=== PATIENT | male | born 1955 | race Caucasian/White ===

== ENCOUNTER 2017-09-05 15:51 | Emergency (ER) | payer BC ==
[~2017-09-05] VITALS: Ht 185.4 cm; Wt 128.7 kg
[~2017-09-05 15:51] MED LIST: ASPIRIN81 M2 PO; BACTRIM,SEPT1 TABLET PO; BENADRYL25 MG PO; BENADRYL50 MG PO; BENICAR HCT 201 EACH PO; CIPRO500 MG PO; DELTASONE20 M1 PO; EPIPEN ADU0.3 MG/0.3 IM; FLAGYL500 MG PO; GINSENG100 M2 PO; GINSENG100 MG PO; HYDROCHLOROTHIA25 MG PO; LIPITOR20 MG PO; LISINOPRIL-HCT1 EAC3 PO; LO-DOSE ASPIRIN81 M1 PO; MULTIPLE VITAM1 EACH PO; NORVASC10 MG PO; NORVASC5 MG PO; PHENERGAN-CODE120 ML PO; PREDNISONE10 M1 PO; PREDNISONE10 MG PO; PREDNISONE20 MG PO; SANDOSTATIN LAR10 MG IM; SANDOSTATIN LAR30 MG IM; TRULICITY1.5 MG/0.5 SC; VITAMIN D2000 UNIT PO; VITAMIN D31000 UNI2 PO; ZANTAC150 MG PO; ZITHROMAX Z-PA250 MG PO
[2017-09-05 17:16] LABS: HEMATOCRIT 41.4 % (38.0-50.0); MCH 29.4 PG (29.0-34.0); MCHC 34.3 G/DL (30.0-36.0); MCV 85.7 FL (86-99); MEAN PLAT.VOLUME 8.5 uM^3 (9.0-12.4); PLATELET COUNT 227 K/uL (156-360); RBC DIS.WIDTH-CV 12.4 % (11.8-14.6); RBC DIS.WIDTH-SD 38.7 % (39-53); RED BLOOD COUNT 4.83 M/uL (4.00-5.50); WHITE BLOOD COUNT 10.8 K/uL (4.1-10.2)
[2017-09-05 17:26] LABS: CHLORIDE 100 mEq/L (99-109); POTASSIUM 3.4 mEq/L (3.7-5.4); SODIUM 134 mEq/L (136-147)
[2017-09-05 17:29] LABS: GLUCOSE 133 mg/dL (70-99)
[2017-09-05 17:30] LABS: ANION GAP 11 MEQ/L (2-14)
[2017-09-05 17:31] LABS: TOTAL BILIRUBIN 0.5 mg/dL (0.0-1.0)
[2017-09-05 17:32] LABS: ALKALINE PHOSPHATASE 81 IU/L (3-129); GFR ESTIMATE (CALCULATED) > 59 mL/min/
[2017-09-05 17:33] LABS: UREA NITROGEN (BUN) 13 mg/dL (9-23)
[2017-09-05 17:36] LABS: LIPASE 13 U/L (1.0-51.0)
[2017-09-05 18:52] LABS: ADD MIUA? YES; BILIRUBIN NEGATIVE; BLOOD MODERATE; COLOR PALE STRAW ((YELLOW)); GLUCOSE (STRIP) NEGATIVE; KETONES NEGATIVE; LEUKOCYTES NEGATIVE; NITRITE NEGATIVE; PROTEIN (STRIP) NEGATIVE; SPECIFIC GRAVITY 1.011 (1.000-1.030); UROBILINOGEN 0.2 MG/DL (0.2-1.0)
[2017-09-05 19:01] LABS: BACTERIA RARE /HPF; EPITHELIAL CELLS RARE /HPF; HYALINE CASTS 0-5 /LPF; MUCUS 1+ /LPF; RED BLOOD CELLS 0-5 /HPF (0-5); WHITE BLOOD CELLS 0-5 /HPF (0-5)
[2017-09-05] MEDS ORDERED: ZOFRAN ODT4 MG PO (19:47)
[2017-09-05 20:09] VITALS: BP 136/89
== END 2017-09-05 20:11 | disposition home or self-care (01) ==
LOC: EME 15:51
PROVIDERS: Nurse Practitioner Family
DX: R11.2 Nausea with vomiting, unspecified (principal); R31.9 Hematuria, unspecified; Z85.07 Personal history of malignant neoplasm of pancreas; I10 Essential (primary) hypertension; E11.9 Type 2 diabetes mellitus without complications; Z72.0 Tobacco use; Z87.442 Personal history of urinary calculi; Z79.82 Long term (current) use of aspirin; Z88.8 Allergy status to other drugs, medicaments and biological substances
CPT/HCPCS: 74177; 80053; 81003; 83690; 85027; 93005; 99281; 99285; J2405; J7030